=== PATIENT | male | born 1970 | race Caucasian/White ===

== ENCOUNTER 2018-07-17 19:12 | Emergency (ER) | payer OTHER, SELFPAY ==
[2018-07-17 19:17] VITALS: BP 156/71; PULSE 57; RESP 14; TEMP 36.6; O2SAT 100
--- NOTE | 2018-07-17 19:38 | ED.GENADUL_ITS ---
Discharge Plan Disposition Patient Disposition: HOME Condition: Good Discharge Details Chief Complaint: Orthopedic Clinical Impression: Closed fracture of right clavicle Primary Care Provider: Rehana Akhtar ED Provider: Kamar Zurita Home Meds and New Rx's Prescriptions: No Action meclizine 12.5 MG tablet 25 mg PO Q4H PRN RF: 0 tramadol 50 MG tablet 50 mg PO Q8H PRN RF: 0 baclofen 10 MG tablet 10 mg PO HS RF: 0 gabapentin 100 MG capsule 100 mg PO BID RF: 0 citalopram 20 mg Tablet 20 mg PO DAILY RF: 0 Vitamin D3 Complete 18 mg iron-800 mcg-150 mg Tablet 1 tab PO DAILY RF: 0 famotidine 20 MG tablet 20 mg PO DAILY RF: 0 Discharge Instructions Instructions: Clavicle Fracture (ED) Additional Instructions: Please take Tylenol and Motrin as needed for pain. Please use ice frequently over the site of tenderness. Please use the sling as directed. Please continue to move your shoulder in all directions 3-4 times per day to prevent frozen shoulder syndrome. Please follow[facility]up promptly with [facility], and your [place] orthopedic surgeon. If you notice any worsening of your symptoms, or any new symptoms such as vomiting, diarrhea, fever, chills, shortness of breath, chest pain, numbness, weakness, or fainting , please return immediately to the emergency department for reevaluation. Please follow up with your primary care provider as soon as possible for reassessment and reevaluation. As always, it was a pleasure participating in your medical care today. Referrals: Rehana Akhtar MD [Primary Care Provider] - Medical Decision Making This is a 47-year-old male who presents today for evaluation of right clavicle pain. The patient states that yesterday he fell on his right shoulder and has since had mild clavicular pain at the medial aspect. Pain is made worse with movement and palpation. He is not recently taking any NSAIDs. He denies any associated numbness tingling or otherwise weakness. Physical exam demonstrates mild deformity at the medial component, no other significant abnormality. No tenderness at the mid or lateral component of the clavicle. We will get an x-ray to rule out fracture versus dislocation. Pain is well controlled at this time. 8:12 PM Radiology reports have returned, and per virtual radiology, it does appear to be a questionable small lucency with minimal displaced in the proximal clavicular metaphysis concerning for very mild fracture. No other significant acutely displaced skeletal fractures otherwise. The patient otherwise feels very well, and does not want anything additional for pain medication. This time I feel that sling, and NSAIDs and ice is very reasonable for home use. Patient is right-hand dominant, however he feels very comfortable at this time. He is a [facility], we do [facility] and with their [facility] physician [facility]. Repeat exam prior to discharge demonstrates continued normal neurovascular exam, with no signs of compromise, no chest pain, no back pain or other signs of significant trauma suggestive of a significant clavicular dislocation. I have extensively reviewed the treatment plan and discharge instructions with the patient and their family. I have addressed all patient concerns at this time. The patient and family was made aware of what symptoms to monitor for that would warrant a return to the emergency department. Discussed the plan with the patient and family, they demonstrate verbal understanding and agreement with our assessment and plan at this time. FINDINGS: Bones/joints: There is a subtle linear lucency through the proximal clavicular metaphysis, in which a minimally displaced fracture is difficult to exclude. No acutely displaced skeletal fractures are otherwise grossly noted. Visualized portions of the chest appear unremarkable. Soft tissues: No significant soft tissue swelling. IMPRESSION: Subtle linear lucency through the proximal clavicular metaphysis, in which a minimally displaced fracture is difficult to exclude. No acutely displaced skeletal fractures are otherwise grossly noted. Thank you for allowing us to participate in the care of your patient. Dictated and Authenticated by: Pawel Turk MD COMPARISON: CR XR CLAVICLE RT 07/17/2018 7:31 PM FINDINGS: Lungs: Unremarkable. No consolidation. Pleural space: Unremarkable. No pleural effusion. No pneumothorax. Heart/Mediastinum: Unremarkable. No cardiomegaly. Bones/joints: No acute skeletal abnormalities grossly noted. Specifically, the clavicles appear in anatomical position. IMPRESSION: Negative for acute thoracic pathology. Thank you for allowing us to participate in the care of your patient. Dictated and Authenticated by: Pawel Turk MD HPI General Date/Time Provider Initiated Documentation: 07/17/18 19:14 . HPI Narrative: This is a very pleasant 47-year-old male with no significant past medical history who presents today for evaluation of right clavicle pain. The patient states that yesterday he fell and landed on his right shoulder, however he noticed that since then he has had continued mild pain over the medial component of his right clavicle. His recommended that he come in for further evaluation. He denies any associated numbness tingling or weakness. Pain is made worse with movement of the shoulder and the arm. He denies any pain in the shoulder itself or the arm. He denies hitting his head, having a loss of consciousness, or any other complaint. No other modifying factors. He is not taking any Tylenol or Motrin recently for the pain. Related Data Home Medications Medication Instructions Recorded Confirmed baclofen 10 mg PO HS 01/24/13 07/17/18 gabapentin 100 mg PO BID 01/24/13 07/17/18 meclizine 25 mg PO Q4H PRN tab-cap 01/24/13 07/17/18 tramadol 50 mg PO Q8H PRN tab-cap 01/24/13 07/17/18 famotidine 20 mg PO DAILY 05/05/16 07/17/18 citalopram 20 mg PO DAILY 07/17/18 07/17/18 [id number] cmplx#190 1 tab PO DAILY 07/17/18 07/17/18 [Vitamin D3 Complete] Allergies Allergy/AdvReac Type Severity Reaction Status Date / Time acetaminophen [From Percocet] AdvReac Intermediate nausea/vomi Unverified 07/17/18 19:20 ting oxycodone HCl [From Percocet] AdvReac Intermediate nausea/vomi Unverified 07/17/18 19:20 ting General Stated Complaint: Orthopedic ELLIE: 3 Review of Systems Review of Systems All systems reviewed & are unremarkable except as noted in HPI and below PFSH Social History Do you feel safe at home: Yes Do you feel safe in your relationship?: Yes Exam Narrative Exam Narrative: 1.Const: Well-nourished, Well-developed, appearing stated age 2.Eyes: PERRL, no conjunctival injection, and symmetrical lids. 3.ENT: Atraumatic external nose and ears. Moist MM. Neck: Symmetric, trachea midline, No thyromegaly. 4.CVS: +S1/S2, No murmurs or gallops. Peripheral pulses 2+ and equal in all extremities. Brisk capillary refill in all extremities. 5.RESP: Unlabored respiratory effort. Clear to auscultation bilaterally. No wheezes rales or rhonchi 6.GI: Soft, Nontender/Nondistended, No hepatosplenomegaly. No guarding or rebound. 7.MSK: Normocephalic, Extremities w/o deformity or ttp No cyanosis or clubbing, Normal movement of all extremities except for slight limitation with movement in the right shoulder secondary to pain in his clavicle. There is evidence of mild deformity at the medial component of his right clavicle. Mild tenderness there. Exam of the right upper extremity demonstrates otherwise normal sensation and strength of motion, normal neurovascular exam. Radial pulse +2 bilaterally. Normal sensation to 8.Skin: Warm, Dry. No rashes or lesions. 9.Neuro: air and water filler II-XII grossly intact. Sensation grossly intact, no focal neurologic deficits. 10.Psych: (AAO) x3. Appropriate mood and affect Course Vital Signs Temperature 36.6 C 07/17/18 19:17 Pulse 57 L 07/17/18 19:17 Respiratory Rate 14 07/17/18 19:17 Blood Pressure 156/71 H 07/17/18 19:17 Pulse Oximetry 100 07/17/18 19:17 Temperature 36.6 C 07/17/18 19:17 Temperature Source Temporal Artery Scan 07/17/18 19:17 Pulse 57 L 07/17/18 19:17 Respiratory Rate 14 07/17/18 19:17 Respiratory Effort Non-Labored 07/17/18 19:24 Blood Pressure 156/71 H 07/17/18 19:17 Blood Pressure Position Sitting 07/17/18 19:17 Pulse Oximetry 100 07/17/18 19:17 Oxygen Delivery Method Room Air 07/17/18 19:17 Oxygen Flow Rate 0 07/17/18 19:17 Pain Level 6 07/17/18 19:24
--- NOTE | 2018-07-17 19:39 | DI.RAD_ITS ---
SYMPTOM/DIAGNOSIS: FELL, DEFORMITY OF CLAVICLE. ? DISLOCATION PA AND LATERAL CHEST: There are no prior comparison exams. The heart size is normal. The lungs are clear. No pneumothorax or rib fracture is seen. The spine and sternum appear grossly intact as visualized. IMPRESSION: Negative chest xray. RIGHT CLAVICLE: There is a questionable lucency in the proximal clavicle which could represent a nondisplaced fracture versus overlying structures. No dislocation of the proximal clavicle is seen. The AC joint and glenohumeral joints appear intact. IMPRESSION: Question of a nondisplaced fracture of the proximal clavicle versus overlying structures.
--- NOTE | 2018-07-17 20:05 | DI.VRAD_ITS ---
EXAM: XR Chest, 2 Views EXAM DATE/TIME: 07/17/2018 7:46 PM CLINICAL HISTORY: 47 years old, male; Pain; Chest pain; Type not specified; Patient HX: Concern for clavicle dislocation TECHNIQUE: Imaging protocol: XR of the chest, 2 views. COMPARISON: CR XR CLAVICLE RT 07/17/2018 7:31 PM FINDINGS: Lungs: Unremarkable. No consolidation. Pleural space: Unremarkable. No pleural effusion. No pneumothorax. Heart/Mediastinum: Unremarkable. No cardiomegaly. Bones/joints: No acute skeletal abnormalities grossly noted. Specifically, the clavicles appear in anatomical position. IMPRESSION: Negative for acute thoracic pathology. Dictated and Authenticated by: Pawel Lopez MD. Ordering:SHANKAR Galvin MD
--- NOTE | 2018-07-17 20:05 | DI.VRAD_ITS ---
EXAM: XR Right Clavicle, Complete EXAM DATE/TIME: 07/17/2018 7:29 PM CLINICAL HISTORY: 47 years old, male; Pain; Other: Clavicle; Patient HX: S/P fall, slipped on ice, deformity at medial. Clavicle. TECHNIQUE: Imaging protocol: XR Right clavicle complete. Any number of views. COMPARISON: No relevant prior studies available. FINDINGS: Bones/joints: There is a subtle linear lucency through the proximal clavicular metaphysis, in which a minimally displaced fracture is difficult to exclude. No acutely displaced skeletal fractures are otherwise grossly noted. Visualized portions of the chest appear unremarkable. Soft tissues: No significant soft tissue swelling. IMPRESSION: Subtle linear lucency through the proximal clavicular metaphysis, in which a minimally displaced fracture is difficult to exclude. No acutely displaced skeletal fractures are otherwise grossly noted. Dictated and Authenticated by: Pawel Lopez MD. Ordering:SHANKAR Galvin MD
== END 2018-07-17 20:20 | disposition home or self-care (01) ==
PROVIDERS: Emergency Provider Student in an Organized Health Care Education/Training Program; PCP Family Medicine
DX: S42.017A Nondisplaced fracture of sternal end of right clavicle, initial encounter for closed fracture (principal); W19.XXXA Unspecified fall, initial encounter
CPT/HCPCS: 96372; 99284; 71046; 73000; 99283; L3650

== ENCOUNTER 2019-10-11 15:16 | Emergency (ER) | payer OTHER, SELFPAY ==
[2019-10-11 15:20] VITALS: BP 148/81; PULSE 60; RESP 17; TEMP 36.9; O2SAT 97
--- NOTE | 2019-10-11 16:15 | DI.RAD_ITS ---
EXAM: XR SACROILIAC JOINTS CLINICAL HISTORY: pain, fall. TECHNIQUE: 2D digital imaging was performed. COMPARISON: CR,XR XR LUMBAR SPINE COMPLETE from 10/11/2019 FINDINGS: BONES: No acute fracture is present. No bony destructive lesion is seen. There is hardware in place a t the L5-S1 level with L5-S1 disc spacer. JOINTS: SI joints appear intact. The pubic symphysis and visualized portions of the hip joints all a re unremarkable.. SOFT TISSUE: Normal. IMPRESSION: Previous surgery at L5-S1. No acute abnormality. DATA REPOSITORY: RADIATION DOSE DELIVERED:
--- NOTE | 2019-10-11 16:23 | ED.GENADUL_ITS ---
Discharge Plan Disposition Patient Disposition: HOME Condition: Stable Discharge Details Chief Complaint: Nk/Back Pain Clinical Impression: Acute exacerbation of chronic low back pain Primary Care Provider: Rehana Akhtar ED Provider: Allison Kingston Home Meds and New Rx's Prescriptions: New cyclobenzaprine 10 mg tablet 10 mg PO BID-TID PRN (Reason: muscle spasm) Qty: 7 RF: 0 No Action meclizine 12.5 MG tablet 25 mg PO Q4H PRN RF: 0 baclofen 10 MG tablet 10 mg PO HS RF: 0 gabapentin 100 MG capsule 100 mg PO BID RF: 0 citalopram 20 mg Tablet 20 mg PO DAILY RF: 0 famotidine 20 MG tablet 20 mg PO DAILY RF: 0 Discharge Instructions Instructions: Back Pain (ED) Additional Instructions: Follow up with primary care provider in 3-5 days. Return to ED sooner if any worsening or concerns. Increase oral fluids. Please take Tylenol up to thousand milligrams 4 times a day or Ibuprofen with food every 4-6 hours as needed for pain and swelling. Return for any worsening symptoms including problems urinating, problems having bowel movements, loss of bladder or bowel control, numbness around your groin area. Try ice, alternating with heat every 20 minutes. Stand Alone Forms: Physical Therapy Referral Referrals: Rehana Akhtar MD [Primary Care Provider] - Discharge Data Discharge Date/Time-TO BE ENTERED AT DEPARTURE: 10/11/19 17:25 Medical Decision Making 48-year-old male presents to the ED with chief complaint of low back pain. Patient states that he tripped down 2 stairs approximately 4 days ago landing on his tailbone. He has right side lumbar pain no radiculopathy. He does have a history of L4-L5 fusion surgery approximately 10 years ago. He does have re sidual bilateral lower extremity weakness which is at its baseline. Patient is alert and oriented x4 upon arrival. He rates his pain mild to moderate on scale. Denies any dysuria, urinary retention, constipation or saddle anesthesia. Initial exam shows generalized bilateral lower extremity weakness which patient states is at his baseline. Positive straight leg test on the right. 1626: Patient in diagnostic imaging at this time. Will reevaluate further plan of care after x-rays. Patient offered pain control and muscle relaxer which he declined at this time. Imaging protocol: XR of the lumbosacral spine with flexion/extension, 6 or more views. COMPARISON: No relevant prior studies available. FINDINGS: Vertebrae: There is no evidence of acute fracture.There is no evidence of malalignment or dislocation. Internal fixation device L5/S1. Pedicular screws and parallel spinous rods. Surgical device at the disc space. Soft tissues: Unremarkable. IMPRESSION: 1. There is no evidence of acute fracture.There is no evidence of malalignment or dislocation. 2. Internal fixation device L5/S1. Pedicular screws and parallel spinous rods. Surgical device at the disc space. Thank you for allowing us to participate in the care of your patient. Dictated and Authenticated by: David Cuevas MD TECHNIQUE: Imaging protocol: XR Bilateral XR of the sacroiliac joints, 3 or more views. COMPARISON: CR XR LUMBAR SPINE COMPLETE 10/11/2019 4:24 PM FINDINGS: Bones/joints: Mild degenerative changes in the sacroiliac joints. There is no evidence of acute fracture.There is no evidence of malalignment or dislocation. Soft tissues: Normal. Other findings: Internal fixation device at L5/S1. IMPRESSION: There is no evidence of acute fracture.There is no evidence of malalignment or dislocation. Thank you for allowing us to participate in the care of your patient. Dictated and Authenticated by: David Cuevas MD 10/11/2019 4:58 PM Eastern Time ([place] & [place]) Patient discharged with Flexeril 10 mg 2-3 times a day as needed #7. Patient given 1 Flexeril prior to discharge in department. Discussed x-ray results with patient, verbalized understanding. HPI General Mode of arrival: ambulatory . Date/Time Provider Initiated Documentation: 10/11/19 15:41 . Limitations to Documentation: no limitations . Information obtained by: patient . HPI Narrative: 48-year-old male presents to the ED with chief complaint of low back pain. Patient states that he tripped down 2 stairs approximately 4 days ago landing on his tailbone. He has right side lumbar pain no radiculopathy. He does have a history of L4-L5 fusion surgery approximately 10 years ago. He does have residual bilateral lower extremity weakness which is at its baseline. Patient is alert and oriented x4 upon arrival. He rates his pain mild to moderate on scale. Denies any dysuria, urinary retention, constipation or saddle anesthesia. Related Data Home Medications Medication Instructions Recorded Confirmed baclofen 10 mg PO HS 01/24/13 10/11/19 gabapentin 100 mg PO BID 01/24/13 10/11/19 meclizine 25 mg PO Q4H PRN tab-cap 01/24/13 10/11/19 famotidine 20 mg PO DAILY 05/05/16 10/11/19 citalopram 20 mg PO DAILY 07/17/18 10/11/19 cyclobenzaprine 10 mg PO BID-TID PRN #7 tab 10/11/19 Previous Rx's Medication Instructions Recorded cyclobenzaprine 10 mg PO BID-TID PRN #7 tab 10/11/19 Allergies Allergy/AdvReac Type Severity Reaction Status Date / Time acetaminophen [From Percocet] AdvReac Intermediate nausea/vomi Unverified 07/17/18 19:20 ting oxycodone HCl [From Percocet] AdvReac Intermediate nausea/vomi Unverified 07/17/18 19:20 ting General Stated Complaint: Nk/Back Pain ELLIE: 4 Review of Systems Narrative: Constitutional: Negative for weight loss, alert and oriented, well groomed, normal body habitus, appears comfortable. HEENT: Denies trauma, headaches, blurry vision, nasal discharge, sore throat, trouble swallowing. Chest: Denies chest pain, palpitations, irregular rhythm, hypertension. Respiratory: Denies Shortness of breath, cough, hemoptysis. GI: Denies abdominal pain, nausea, vomiting, diarrhea, constipation. : Denies dysuria, hematuria, flank pain, rectal bleeding. Musculoskeletal: History of L4-L5 spinal fusion, residual bilateral lower extremity weakness. Neuro: Denies dizziness, blurry vision, syncope, headache or facial numbness. Hematologic: Denies easy bruising, intolerance to heat or cold, hair loss. All systems reviewed & are unremarkable except as noted in HPI and below PFSH Social History Smoking/Tobacco Use Status: Current-Occasional Tobacco Type: cigarettes Drug use: Never Do you feel safe at home: Yes Do you feel safe in your relationship?: Yes Exam Narrative Exam Narrative: Constitutional: Alert and oriented x3. Appears stated age. Normal body habitus. Head: Normocephalic, no trauma. Eyes: Pupils PERRLA, Red reflex noted, EOM's intact. Eyelids symmetrical without lesions, discharge, or swelling. ENT: Bilateral TM's WNL, External ear normal to inspection, no mastoid TTP, swelling, or erythema, Nasal turbinates WNL, no nasal discharge. Normal d entition, Posterior pharynx WNL, no exudate. Chest: RRR, Normal S1, S2, distal pulses intact. Resp: Lungs clear to auscultation bilaterally, no wheezes, rales, or rhonchi. Musculoskeletal: Normal gait, 3/5 strength noted to bilateral lower extremities dorsiflexion 1+, plantarflexion 1+ bilaterally. No radiculopathy pain no focal neuro deficits., Positive straight leg test on right. Skin: No suspicious rashes or lesions. Capillary refill less than 2 sec. Neurologic: Cranial nerves II-XII intact. Alert and oriented x 3. DTR's intact. Hematologic/Lymphatic: No ecchymosis, no lymphadenopathy. Course Vital Signs Vital signs: Vital Signs Temperature 36.9 C 10/11/19 15:20 Pulse 60 10/11/19 15:20 Respiratory Rate 17 10/11/19 15:20 Blood Pressure 148/81 H 10/11/19 15:20 Pulse Oximetry 97 10/11/19 15:20 Temperature 36.9 C 10/11/19 15:20 Temperature Source Temporal Artery Scan 10/11/19 15:20 Pulse 60 10/11/19 15:20 Respiratory Rate 17 10/11/19 15:20 Respiratory Effort 10/11/19 15:23 Blood Pressure 148/81 H 10/11/19 15:20 Blood Pressure Position Sitting 10/11/19 15:20 Pulse Oximetry 97 10/11/19 15:20 Oxygen Delivery Method Room Air 10/11/19 15:20 Oxygen Flow Rate 0 10/11/19 15:20 Pain Level 6 10/11/19 15:20
--- NOTE | 2019-10-11 16:40 | DI.RAD_ITS ---
EXAM: XR LUMBAR SPINE COMPLETE CLINICAL HISTORY: fall, pain. TECHNIQUE: 2D digital imaging was performed. COMPARISON: No exams were available for comparison FINDINGS: BONES: No fracture or destructive lesion. Vertebral bodies are unremarkable. There is mild facet hype rtrophy identified at the L3-4 level. Hardware is noted at the L5-S1 level which appears intact.. DISKS: Intervertebral disc spaces are maintained. ALIGNMENT: Lumbar spinal alignment is within normal limits. SOFT TISSUE: Normal. IMPRESSION: Intact hardware at the L5-S1 level. Acute abnormality. DATA REPOSITORY: RADIATION DOSE DELIVERED:
--- NOTE | 2019-10-11 16:58 | DI.VRAD_ITS ---
PROCEDURE INFORMATION: Exam: XR Lumbosacral Spine Complete with Flexion/Extension, 6 or More Views Exam date and time: 10/11/2019 4:30 PM Age: 48 years old Clinical indication: Other: Fall, pain TECHNIQUE: Imaging protocol: XR of the lumbosacral spine with flexion/extension, 6 or more views. COMPARISON: No relevant prior studies available. FINDINGS: Vertebrae: There is no evidence of acute fracture.There is no evidence of malalignment or dislocation. Internal fixation device L5/S1. Pedicular screws and parallel spinous rods. Surgical device at the disc space. Soft tissues: Unremarkable. IMPRESSION: 1. There is no evidence of acute fracture.There is no evidence of malalignment or dislocation. 2. Internal fixation device L5/S1. Pedicular screws and parallel spinous rods. Surgical device at the disc space. Dictated and Authenticated by: David Cuevas MD. Ordering:ANTOINE Chavez MD
--- NOTE | 2019-10-11 16:59 | DI.VRAD_ITS ---
PROCEDURE INFORMATION: Exam: XR Bilateral Sacroiliac Joints, 3 or More Views Exam date and time: 10/11/2019 4:30 PM Age: 48 years old Clinical indication: Other: Fall, pain TECHNIQUE: Imaging protocol: XR Bilateral XR of the sacroiliac joints, 3 or more views. COMPARISON: CR XR LUMBAR SPINE COMPLETE 10/11/2019 4:24 PM FINDINGS: Bones/joints: Mild degenerative changes in the sacroiliac joints. There is no evidence of acute fracture.There is no evidence of malalignment or dislocation. Soft tissues: Normal. Other findings: Internal fixation device at L5/S1. IMPRESSION: There is no evidence of acute fracture.There is no evidence of malalignment or dislocation. Dictated and Authenticated by: David Cuevas MD. Ordering:ANTOINE Chavez MD
[2019-10-11] MEDS: Cyclobenzaprine 10 MG TAB PO (17:20)
== END 2019-10-11 17:25 | disposition home or self-care (01) ==
PROVIDERS: Emergency Provider Registered Nurse Emergency; PCP Family Medicine
DX: M54.5 Low back pain (principal); G89.29 Other chronic pain; W10.8XXA Fall (on) (from) other stairs and steps, initial encounter; Z96.89 Presence of other specified functional implants
CPT/HCPCS: 99284; 72110; 72202

== ENCOUNTER 2024-03-21 02:49 | Emergency (ER) | payer OTHER, SELFPAY ==
[2024-03-21 02:55] VITALS: BP 180/100; PULSE 60; RESP 16; TEMP 36.6; O2SAT 97
[2024-03-21 03:07] VITALS: RESP 18
--- NOTE | 2024-03-21 03:15 | DI.RAD_ITS ---
Exam(s) XR KNEE RT 3V AP,LAT,KERI EXAM: XR KNEE RT 3V AP,LAT,KERI CLINICAL HISTORY: right focal prox fibular head pain, no known injur. TECHNIQUE: 2D digital imaging was performed of the right knee. Four views obtained. AP, lateral and PA tunnel views were obtained. COMPARISON: No priors for comparison. FINDINGS: BONES: No acute fracture is present. No bony destructive lesion is seen. There is an enthesophyte at the superior patella. JOINTS: The knee is normally aligned. No joint effusion is seen. SOFT TISSUE: Normal. IMPRESSION: No acute abnormality. DATA REPOSITORY: RADIATION DOSE DELIVERED:
[2024-03-21] MEDS: Bupivacaine 0.5% Pres-Free 30 ML VIAL (03:22)
[2024-03-21] MEDS: Diclofenac 1% Gel 100 GM TUBE TP (03:25)
[2024-03-21] MEDS: Lidocaine 5% Patch 1 PATCH TP (03:25)
[2024-03-21] MEDS: Acetaminophen 500 MG TAB 1000 MG PO (03:25)
[2024-03-21] MEDS: Ibuprofen 800 MG TAB PO (03:25)
--- NOTE | 2024-03-21 03:33 | ED.GENADUL_ITS ---
Discharge Plan Disposition Patient Disposition: Home Condition: Good Discharge Details Chief Complaint: GenMedical Clinical Impression: Pain of right fibula Primary Care Provider: Rehana Akhtar ED Provider: Kamar Zurita Home Meds and New Rx's Prescriptions: No Action amlodipine 5 mg tablet 5 mg PO DAILY aspirin 81 mg capsule 81 mg PO DAILY atorvastatin 80 mg tablet 80 mg PO DAILY clopidogrel [Plavix] 75 mg tablet 75 mg PO DAILY escitalopram oxalate 20 mg tablet 20 mg PO DAILY valsartan [Diovan] 160 mg tablet 160 mg PO DAILY methimazole 5 mg tablet 5 mg PO DAILY famotidine 20 MG tablet 20 mg PO DAILY Discharge Instructions Instructions: Muscle and Bone Pain (DC) Additional Instructions: At this time your x-ray is negative for any evidence of fracture. Your knee is stable on dressing suggesting no significant tendon disruption. Your pain seems to be focal and localized to the fibular head around the peroneal nerve. I suspect you have irritation of the ligaments nerve and joint space for the fibular head. Please continue applying the Voltaren gel to that area every 4-6 hours. You can take Tylenol and Motrin as well for the next few days. Please make sure to take this with food as it can irritate and upset your stomach while on the aspirin and Plavix. Please ice the area as needed. Please stay off the right leg if possible for the next day or 2 and utilize the crutches to prevent increased irritation. You were given a steroid injection to the area, if you still have persistent symptoms after 3 to 4 days of the following treatment, you may need further evaluation with an MRI. If you notice any worsening of your symptoms, or any new symptoms such as vomiting, diarrhea, fever, chills, shortness of breath, chest pain, numbness, weakness, or fainting , please return immediately to the emergency department for reevaluation. Please follow up with your primary care provider as soon as possible for reassessment and reevaluation. As always, it was a pleasure participating in your medical care today. Referrals: Rehana Akhtar MD [Primary Care Provider] - [facility] General Date/Time Provider Initiated Documentation: 03/21/24 02:51 . HPI Narrative: This is a very pleasant 53-year-old male who is a [facility] patient with a past medical history of hypertension, high cholesterol, who recently had a stroke within the last few months who is now on aspirin and Plavix who presents today for right proximal fibular pain. 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 This evening while sitting at dinner he noticed a small mild ache at the head of the fibula, and this worsened throughout the night. Becoming absolutely severe and out of proportion. Pain was notably worsened with movement or touching that area. He denies any trauma, recent significant exercising, known injury, or other exacerbating components. He denies fever or chills. No other complaints at this time. He did not take any NSAIDs prior to arrival aside for his nightly antiplatelet therapy. Related Data Home Medications ?Medication ?Instructions ?Recorded ?Confirmed famotidine 20 mg tablet 20 mg PO DAILY 05/05/16 03/21/24 amlodipine 5 mg tablet 5 mg PO DAILY 03/21/24 03/21/24 aspirin 81 mg capsule 81 mg PO DAILY 03/21/24 03/21/24 atorvastatin 80 mg tablet 80 mg PO DAILY 03/21/24 03/21/24 clopidogrel 75 mg tablet (Plavix) 75 mg PO DAILY 03/21/24 03/21/24 escitalopram oxalate 20 mg tablet 20 mg PO DAILY 03/21/24 03/21/24 methimazole 5 mg tablet 5 mg PO DAILY 03/21/24 03/21/24 valsartan 160 mg tablet (Diovan) 160 mg PO DAILY 03/21/24 03/21/24 Allergies Allergy/AdvReac Type Severity Reaction Status Date / Time acetaminophen (From Percocet) AdvReac Intermediate nausea/vomi Unverified 03/21/24 03:10 ting oxycodone HCl (From Percocet) AdvReac Intermediate nausea/vomi Unverified 03/21/24 03:10 ting General Stated Complaint: GenMedical ELLIE: 3 Review of Systems All systems reviewed & are unremarkable except as noted in HPI and below Exam Narrative Exam Narrative: 1.Const: Well-nourished, Well-developed, appearing stated age 2.Eyes: PERRL, no conjunctival injection, and symmetrical lids. 3.ENT: Atraumatic external nose and ears. Moist MM. Neck: Symmetric, trachea midline, No thyromegaly. 4.CVS: +S1/S2, Peripheral pulses 2+ and equal in all extremities. Brisk capillary refill in all extremities. 5.RESP: Unlabored respiratory effort. Clear to auscultation bilaterally. No wheezes rales or rhonchi 6.GI: Soft, Nontender/Nondistended, No hepatosplenomegaly. No guarding or rebound. 7.MSK: Normocephalic/Atraumatic, Extremities w/o deformity No cyanosis or clubbing, patient demonstrates no tibial tenderness throughout. However he demonstrates focal out of proportion tenderness right at the fibular head and just superior to it. No redness or swelling or warmth to suggest infection. Pain is notably worsened with palpation, but also slightly worsened with lateral varus stretching, and extension of the knee. No posterior popliteal pain. No significant distal femoral pain on the lateral aspect. Dorsalis pedis and posterior tibial pulse +2 bilaterally. Normal sensation throughout. No calf tenderness or calf spasm whatsoever. 8.Skin: Warm, Dry. No rashes or lesions. 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 Sensation grossly intact, no focal neurologic deficits. 10.Psych: (AAO) x3. Appropriate mood and affect Course Vital Signs Vital signs: Vital Signs Temperature 36.6 C 03/21/24 02:55 Pulse 60 03/21/24 02:55 Respiratory Rate 16 03/21/24 02:55 Blood Pressure 180/100 H 03/21/24 02:55 Pulse Oximetry 97 03/21/24 02:55 Temperature 36.6 C 03/21/24 02:55 Temperature Source Temporal Artery Scan 03/21/24 02:55 Pulse 60 03/21/24 02:55 Respiratory Rate 18 03/21/24 03:07 Respiratory Effort Normal, Non-Labored 03/21/24 03:07 Respiratory Depth Normal 03/21/24 03:07 Respiratory Pattern Normal 03/21/24 03:07 Blood Pressure 180/100 H 03/21/24 02:55 Blood Pressure Position Supine 03/21/24 02:55 Pulse Oximetry 97 03/21/24 02:55 Oxygen Delivery Method Room Air 03/21/24 02:55 Oxygen Flow Rate 0 03/21/24 02:55 Pain Level 10 03/21/24 02:55 Procedures Joint Aspiration/Injection Joint Asp./Inject. 1: Time Out Performed: Yes Side of body: right Joint Aspirated: knee (Right proximal fibular head) Ultrasound Guidance: No Skin Prep: Chlorhexidene Local Anesthetic: Bupivicaine 0.25% (Given superficially) Amount of anesthesia used (mL): 5 Needle Size Used: 22G Medication Injected, if any: Methylprednisolone (40mg) Amount of Medication Injected (mls): 1 (0.5 given) Patient Tolerated Procedure: well and no complications Complications: none Medical Decision Making This is a very pleasant 53-year-old male who is a [facility] patient with a past medical history of hypertension, high cholesterol, who recently had a stroke within the last few months who is now on aspirin and Plavix who presents today for right proximal fibular pain. 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 This evening while sitting at dinner he noticed a small mild ache at the head of the fibula, and this worsened throughout the night. Becoming absolutely severe and out of proportion. Pain was notably worsened with movement or touching that area. He denies any trauma, recent significant exercising, known injury, or other exacerbating components. He denies fever or chills. No other complaints at this time. He did not take any NSAIDs prior to arrival aside for his nightly antiplatelet therapy. Physical exam demonstrates focal out of proportion tenderness right at the fibular head and just superior to it. No redness or swelling or warmth to suggest infection. Pain is notably worsened with palpation, but also slightly worsened with lateral varus stretching, and extension of the knee. No posterior popliteal pain. No significant distal femoral pain on the lateral aspect. Dorsalis pedis and posterior tibial pulse +2 bilaterally. Normal sensation throughout. No calf tenderness or calf spasm whatsoever. No subcutaneous crepitus to suggest necrotizing fasciitis. No redness or warmth to suggest cellulitis. The bony tenderness certainly does increase the suspicion for ligamentous or bony injury or joint irritation or injury. The hyperesthesias may be secondary to the proximity to the peroneal nerve. No redness warmth or swelling to suggest DVT. No vascular change to suggest aneurysm. Will get an x-ray, give NSAID therapy. We will inject some bupivacaine to help with potential pain reduction. Will monitor closely and reassess. Patient may benefit from steroid injection to the area. 4:11 AM X-ray negative for evidence of fracture. Patient feeling better after bupivacaine injection. Suspect ligamentous joint or nerve irritation given the symptoms. We did give 40 mg of hydrocortisone injection. We will give crutches from use, recommend continued Voltaren gel NSAID therapy. Patient may need MRI if symptoms do not improve after the next few days. Discussed red flags for which to return. No other evidence of acute life or limb threatening etiology at this time. I have extensively reviewed the treatment plan and discharge instructions with the patient. I have addressed all patient concerns at this time. The patient was made aware of what symptoms to monitor for that would warrant a return to the emergency department. Discussed the plan with the patient, they demonstrate verbal understanding and agreement with our assessment and plan at this time. The documentation in this chart was dictated using [employer] dictation software. Please excuse any dictation errors. FINDINGS: Bones/joints: Four views of the right knee reveal no acute fracture or dislocation. There is a large enthesophyte arising from the superior pole of the patella. No large joint effusion is seen. Soft tissues: No gross soft tissue abnormality is demonstrated. IMPRESSION: No acute fracture or dislocation seen at the right knee. The cause of pain is not identified. Thank you for allowing us to participate in the care of your patient. Dictated and Authenticated by: Oliver Strange MD 03/21/2024 4:04 AM Eastern Time ([place] & [place]) Quality:SDOH Health Related Social Needs: No Data to Display PFSH All Active Problems (Updated 03/21/24 @ 04:08 by Kamar Zurita DO) Pain of right fibula (Acute) Social History Smoking/Tobacco Use Status: Current-Occasional Tobacco Type: cigarettes Smoking risk assessment performed?: Yes Drug use: Never Do you feel safe at home: Yes Do you feel safe in your relationship?: Yes
[2024-03-21] MEDS: methylPREDNISolone ACETATE 80 MG/ML VIAL (03:55)
--- NOTE | 2024-03-21 04:05 | DI.VRAD_ITS ---
PROCEDURE INFORMATION: Exam: XR Right Knee Exam date and time: 03/21/2024 3:37 AM Age: 53 years old Clinical indication: Knee; Patient HX: Right focal proximal fibular head pain, no known injury TECHNIQUE: Imaging protocol: Radiologic exam of the right knee. Views: 3 views. COMPARISON: No relevant prior studies available. FINDINGS: Bones/joints: Four views of the right knee reveal no acute fracture or dislocation. There is a large enthesophyte arising from the superior pole of the patella. No large joint effusion is seen. Soft tissues: No gross soft tissue abnormality is demonstrated. IMPRESSION: No acute fracture or dislocation seen at the right knee. The cause of pain is not identified. Dictated and Authenticated by: Oliver Strange MD. Ordering:SHANKAR Galvin MD
[2024-03-21 04:14] VITALS: BP 150/78; PULSE 60; RESP 16; O2SAT 98
== END 2024-03-21 04:14 | disposition home or self-care (01) ==
LOC: ER 04:43
PROVIDERS: Emergency Provider Student in an Organized Health Care Education/Training Program; PCP Family Medicine
DX: M79.661 Pain in right lower leg (principal); I10 Essential (primary) hypertension; E78.5 Hyperlipidemia, unspecified; Z86.73 Personal history of transient ischemic attack (TIA), and cerebral infarction without residual deficits; Z79.82 Long term (current) use of aspirin; Z79.01 Long term (current) use of anticoagulants
CPT/HCPCS: 20610; 73562; 99283; J0665; J1010